=== PATIENT | female | born 1935 | race Two or more races ===

== ENCOUNTER 2021-12-29 16:09 | Inpatient (IN) | payer OTHER ==
[~2021-12-29] VITALS: Ht 152.4 cm; Wt 74.4 kg
[2021-12-29 16:24] VITALS: BP_SYST 124
--- NOTE | 2021-12-29 16:29 | NUR ---
Patient triaged and placed in ER HALLWAY. VSS and patient appears in no acute distress at this time. Accompanied by BLS, awaiting available bed, and MD notified of need for MSE.
--- NOTE | 2021-12-29 16:50 | NUR ---
Placed in room 7 . Placed on pvc monitor, blood pressure machine and pulse oximeter. To gown for exam. Side rails up. Report given to DIOMEDES MIGUEL.
[2021-12-29 17:05] LABS: BASOPHILS # (AUTO) 0.1 K/uL (0.0-0.2); BASOPHILS % (AUTO) 0.8 % (0.0-2.0); EOSINOPHILS # (AUTO) 0.3 K/uL (0.0-0.4); EOSINOPHILS % (AUTO) 3.9 % (0.0-4.0); LYMPHOCYTES # (AUTO) 0.7 K/uL (1.0-5.5); LYMPHOCYTES % (AUTO) 11.1 % (20.5-51.5); MEAN CORPUSCULAR HEMOGLOBIN 31 pg (27-31); MEAN CORPUSCULAR HGB CONC 35 % (32-36); MEAN CORPUSCULAR VOLUME 89 fL (79.0-98.0); MONOCYTES # (AUTO) 0.7 K/uL (0.0-1.0); MONOCYTES % (AUTO) 9.6 % (1.7-9.3); NEUTROPHILS % (AUTO) 74.6 % (40.0-70.0); PLATELET COUNT (AUTO) 438 K/uL (130-430); RED BLOOD CELL COUNT(AUTO) 2.05 MIL/uL (4.2-6.2); RED CELL DISTRIBUTION WIDTH 14.9 % (9.0-15.0); WHITE BLOOD COUNT (AUTO) 6.7 K/uL (4.8-10.8)
[2021-12-29 17:10] LABS: HEMATOCRIT 18.1 % (36-48); HEMOGLOBIN 6.4 g/dL (12.0-16.0)
[2021-12-29 17:37] LABS: ANION GAP 7 (5-15); CALCIUM 9.8 mg/dL (8.4-11.0); CHLORIDE 100 mmol/L (98-107); CREATININE 2.24 mg/dL (0.55-1.30); GLUCOSE 182 mg/dL (70-99); POTASSIUM 4.5 mmol/L (3.5-5.1); UREA NITROGEN, BLOOD 58 mg/dL (8-21)
--- NOTE | 2021-12-29 17:37 | NUR ---
Pt bib ER BLS from [facility], aaox4 GCS 15 CC weakness secondary to reported abnormal labs. Past medical history of HTN, Hyperlipidemia, chronic kidney disease, muscle weakness, heart failure. Pt with Ruiz cath Full code. VSS
[2021-12-29 17:43] LABS: ALANINE AMINOTRANSFERASE 22 U/L (12-78); ALBUMIN 2.3 g/dL (3.4-4.8); AMYLASE 63 U/L (0-100); ASPARTATE AMINOTRANSFERASE 18 U/L (10-37); LIPASE 266 U/L (73-393); TOTAL BILIRUBIN 0.4 mg/dL (0.0-1.0)
[2021-12-29 17:48] LABS: PROTHROMBIN TIME 10.4 SECS (9.5-12.5)
--- NOTE | 2021-12-29 18:05 | NUR ---
Consent for blood discussed with pt and son Kai via telephone. Pt signed for consent to proceed with blood transfusion.
[2021-12-29] MEDS ORDERED: ACET-2634 PO (18:08)
[2021-12-29] MEDS ORDERED: ACET325T PO (18:08)
[2021-12-29] MEDS ORDERED: DOCU-159 PO (18:20)
[2021-12-29] MEDS ORDERED: FURO-149 PO (18:20)
[2021-12-29] MEDS ORDERED: ATOR10TA68 PO (18:20)
[2021-12-29] MEDS ORDERED: LABE100T9 PO (18:20)
[2021-12-29] MEDS ORDERED: MOM PO (18:20)
[2021-12-29] MEDS ORDERED: BISA10SU61 (18:20)
[2021-12-29] MEDS ORDERED: ACETAMINOPHEN 500 MG TABLET PO ONE (18:30)
--- NOTE | 2021-12-29 18:38 | NUR ---
Admit bed requested Patient will be admitted to care of . Admitted to tele unit. Diagnosis severe anemia Inpatient (Yes or No) y Observation (Yes or No) n Orientation concerns or request close to nursing station (Yes or No) n Covid Status neg On vent or bipap no Isolation requirements n Needs a sitter n From Home (Yes or if No enter name of facility) [facility] Requires Dialysis (Yes or No) n Med Rec Completed (Yes of No) y
--- NOTE | 2021-12-29 18:41 | NUR ---
Pt resting comfortably without complaint. Pt informed of admission status and awaiting transfer to floor. Ruiz bag emptied 300 ml .
[2021-12-29] MEDS ORDERED: LORazepam 2 MG/ML VIAL IVP PRN (19:15)
[2021-12-29] MEDS ORDERED: HYDROcodone/ACETAMIN 5-325 MG TAB (NORCO/ VICODIN) PO PRN (19:15)
[2021-12-29] MEDS ORDERED: ACETAMINOPHEN 325 MG TABLET PO PRN ×2 (19:15→19:30)
[2021-12-29] MEDS ORDERED: POTASSIUM CHLORIDE 20 MEQ TAB.PRT.SR PO PRN (19:15)
[2021-12-29] MEDS ORDERED: MAGNESIUM SULFATE 50 ML IV PRN (19:15)
[2021-12-29] MEDS ORDERED: ONDANSETRON HCL 4 MG/2 ML VIAL IVP PRN (19:15)
[2021-12-29] MEDS ORDERED: DOCUSATE SODIUM 100 MG CAPSULE PO PRN (19:15)
[2021-12-29] MEDS ORDERED: MUPIROCIN 2% TOPICAL OINTMENT 22 GM NS PRN (19:15)
[2021-12-29] MEDS ORDERED: ZOLPIDEM TARTRATE 5 MG TABLET PO PRN (19:15)
--- NOTE | 2021-12-29 19:15 | NUR ---
RECD REPORT FROM DIOMEDES MIGUEL FOR CONTINUITY OF CARE. VSS, IV ACCESS PLACED AT LT AC IVF RUNNING
[2021-12-29] MEDS: NACL 0.9% 1,000 ML IV SCH (19:41)
--- NOTE | 2021-12-29 20:00 | NUR ---
C/O PAIN MEDICATED WITH TYLENOL ORAL 500MG, BLOOD TRASFUSION STARTED NO UNTOWARD REACTION NOTED
[2021-12-29 20:07] LABS: TOTAL IRON BIND. CAPACITY 154 ug/dL (250-450)
--- NOTE | 2021-12-29 20:15 | NUR ---
BT IN PROGRESS NO UNTOWARD REACTION NOTED AT THIS TIME.
[2021-12-29 20:37] VITALS: BP_SYST 150
--- NOTE | 2021-12-29 20:37 | NUR ---
NOTES; -Called Annalisa to verify telemetry box with pt's name, and ID bracelet prior put telemetry on this patient.
--- NOTE | 2021-12-29 20:37 | NUR ---
ADMISSION NOTE ADMISSION NOTE Received patient from ER via gurney. Patient admitted with diagnosis of severe anemia. Patient is awake, alert, oriented X 4. Patient oriented to hospital room, call light, toileting, pain management and safety-teach back done. Patient informed that I (Kayli) will be her nurse and that their room number is 103-B. Personal belongings checked and Belongings List documented. Call light within reach. Bed alarmed, side rails x3. Discussed poc,all safety measures, pain mgmt, not to get OOB if needs assistance or if experiencing any acute distress to use call light for assistance, pt verbalized understanding. Pt is a/ox4, knows how to use call light. Pt is arriving with 1 unit of PRBC transfusing of LAC #20, patent, no s/s any infiltration noted and Ruiz cath w/ gravity drains yellow urine outptu. Pt has deep wound of coccyx with scant foul purulent discharge. Also, redness of perineal and redness with skin tear of tonia thighs noted, tonia heels redness with slowly blanchable. will order wound care consult. tonia heels elevated with pillows and turned & repositioned and q 2hrs prn. No family is at bedside. Cont to monitor pt. Addendum: 12/29/21 at 2344 by [employer], RN RN ENDORSED BY MICHELLE PHAN NURSE THAT 2 UNITS OF PRBC ORDERED; 1 UNIT OF PRBC IS INFUSING NOW.
--- NOTE | 2021-12-29 21:01 | NUR ---
Patient will be admitted to care of DR OSBORN. Admitted to MST unit. Will go to room 103-B. Belongings list completed. Complete and up to date summary report printed. SBAR report to be given at bedside with opportunity for questions GIVEN TO PORFIRIO ZELAYA.
[2021-12-29 21:06] VITALS: BP_SYST 150
--- NOTE | 2021-12-29 22:21 | NUR ---
CONSULTATION PAGED/CALLED Reason for Consultation: RENAL INSUFFICIENCY Person Who was Notified: AG Consulting Physician: DR. DAILY Bacteriologist Pharmaceutical Specialty: OIL EXTRACTOR Ordering Physician: DR OSBORN
[2021-12-29 22:45] VITALS: BP_SYST 137
--- NOTE | 2021-12-29 22:45 | NUR ---
ROUNDS; 1 UNIT OF PRBC COMPLETED -Pt is resting in bed comfortably. Pt denies any chest pain,pain,sob,or any acute distress. NO s/s any rxn or complication after 1 unit of 1 unit PRBC completed, VSS 97.1,16,137/65, 79,j1rtd=95% r/a. All safety measures in place. Bed alarmed, side rails x3,call light w/in reach. Cont to monitor pt.
--- NOTE | 2021-12-30 00:20 | NUR ---
ROUNDS; -Pt is resting in bed comfortably. No s/s any chest pain,pain,sob,or any acute distress noted. All safety measures in place. Bed alarmed, side rails x3,call light w/in reach. Cont to monitor pt
--- NOTE | 2021-12-30 03:15 | NUR ---
NOTES; COLLECTED MRSA NARES AND COLLECTED URINE FROM SHIELDS CATH FOR U/A USING STERILE TECHNIQUE AND SENT TO LAB
[2021-12-30 03:25] VITALS: BP_SYST 160
--- NOTE | 2021-12-30 03:25 | NUR ---
BT INITIATION: Consent signed by patient agreeing to administration of blood. Blood has been type and crossmatched. Blood sent from blood bank. Information on unit of blood checked against patient wristband at bedside by two nurses. All information matches. Patient or responsible libertarian informed of potential complications associated with blood transfusion. Informed of possible transfusion reaction symptoms. Aware of need to notify nurse at once of itching, shortness of breath, flushing, feeling of impending doom, or other symptoms not previously present. Vital signs taken within 5 minutes prior to initiation of transfusion. Vital signs 96.8,16,77,160/72,l9yop=45% r/a. RN will remain with patient for first 15 minutes of transfusion at which time vital signs will be re-assessed.
[2021-12-30 03:40] VITALS: BP_SYST 158
--- NOTE | 2021-12-30 03:40 | NUR ---
NOTES; AFTER 15 MINS OF PRBC UNIT TRANSFUSED -Pt is resting in bed comfortably. Pt denies any chest pain, pain,sob,or any acute distress. VSS 97.8,158/70,77,16,a0trd=56% r/a. No s/s any rxn or an complication noted. Cont to monitor pt.
[2021-12-30 03:49] LABS: BILIRUBIN,URINE NEGATIVE (NEGATIVE); BLOOD, URINE NEGATIVE (NEGATIVE); COLOR,URINE YELLOW (YELLOW); GLUCOSE,URINE NEGATIVE (NEGATIVE); KETONES,URINE NEGATIVE (NEGATIVE); LEUKOCYTE ESTERASE ,URINE 1+ (NEGATIVE); NITRITE, URINE POSITIVE (NEGATIVE); PH,URINE 5.5 (5.0-8.0); PROTEIN URINE NEGATIVE (NEGATIVE); UROBILINOGEN,URINE 0.2 (0.2-1.0)
[2021-12-30 03:53] LABS: CLARITY/URINE HAZY (CLEAR)
[2021-12-30 03:58] LABS: RBC,URINE 0-3 /HPF (0-3)
[2021-12-30 04:01] LABS: BACTERIA,URINE MODERATE /HPF (None Seen)
[2021-12-30 04:02] LABS: MUCUS,URINE 1+ /LPF (None Seen)
--- NOTE | 2021-12-30 05:40 | NUR ---
NOTES; NEW IV SITE -INSERTED NEW IV SITE OF RAC #20, PATENT, GOOD BLOOD RETURNS, NO S/S ANY INFILTRATION NOTED. -CONTINUING TO INFUSE BLOOD TRANSFUSION. PT DENIES ANY CHEST PAIN,PAIN,SOB,OR ANY ACUTE DISTRESS. CONT TO MONITOR PT.
--- NOTE | 2021-12-30 06:55 | NUR ---
ROUNDS; -Pt is resting in bed comfortably. Blood transfusion is almost completed, no s/s any rxn or complication noted. Pt denies any chest pain,pain,sob,or any acute distress noted. IV site of RAC patent,no s/s any infiltration noted. Ruiz cath w/ gravity drains yellow urine output. All safety measures in place. Bed alarmed, side rails x3,call light w/in reach. Will endorse to next nurse to cont care.
--- NOTE | 2021-12-30 07:30 | NUR ---
OPENING NOTE Patient resting in bed. Blood Transfusion completed at this time. Checked vital signs for post transfusion, all within normal limits. Patient A/O x 4 Qatari speaking. On bedrest with Ruiz placed, patent and draining yellow urine to gravity. No pain, no sob, no distress noted at this time. All needs met, safety precautions in place, bed is locked in lowest position, call light within reach. Will continue to monitor.
[2021-12-30 07:34] VITALS: BP_SYST 124
[2021-12-30] MEDS: ATORVASTATIN 10 MG TABLET PO SCH (09:03)
[2021-12-30] MEDS: LABETALOL HCL 100 MG TABLET PO SCH (09:04)
[2021-12-30] MEDS: NACL 0.9% 1,000 ML IV SCH (09:07)
[2021-12-30 09:19] LABS: BASOPHILS # (AUTO) 0.1 K/uL (0.0-0.2); BASOPHILS % (AUTO) 1.1 % (0.0-2.0); EOSINOPHILS # (AUTO) 0.1 K/uL (0.0-0.4); EOSINOPHILS % (AUTO) 1.5 % (0.0-4.0); HEMOGLOBIN 9.1 g/dL (12.0-16.0); LYMPHOCYTES # (AUTO) 0.7 K/uL (1.0-5.5); LYMPHOCYTES % (AUTO) 7.3 % (20.5-51.5); MEAN CORPUSCULAR HEMOGLOBIN 28 pg (27-31); MEAN CORPUSCULAR HGB CONC 34 % (32-36); MEAN CORPUSCULAR VOLUME 84 fL (79.0-98.0); MONOCYTES # (AUTO) 0.6 K/uL (0.0-1.0); MONOCYTES % (AUTO) 6.5 % (1.7-9.3); NEUTROPHILS # (AUTO) 7.9 K/uL (1.8-7.7); NEUTROPHILS % (AUTO) 83.6 % (40.0-70.0); PLATELET COUNT (AUTO) 400 K/uL (130-430); RED CELL DISTRIBUTION WIDTH 19.6 % (9.0-15.0); WHITE BLOOD COUNT (AUTO) 9.4 K/uL (4.8-10.8)
[2021-12-30 09:46] LABS: ANION GAP 9 (5-15); CALCIUM 9.9 mg/dL (8.4-11.0); CHLORIDE 112 mmol/L (98-107); GLUCOSE 166 mg/dL (70-99); POTASSIUM 4.2 mmol/L (3.5-5.1); UREA NITROGEN, BLOOD 50 mg/dL (8-21)
[2021-12-30] MEDS ORDERED: FERROUS GLUCONATE 324 MG TABLET PO ONE (10:00)
[2021-12-30] MEDS: cefTRIAXone 1 GM IVPB PREMIX 50 ML IV SCH (11:39)
--- NOTE | 2021-12-30 11:57 | NUR ---
Patient Rounds Patient resting in bed. No pain, no sob, no distress noted at this time. Ruiz patent and draining yellow urine to gravity. All needs met, safety precautions in place, bed is locked in lowest position, call light within reach. Will continue to monitor.
[2021-12-30 12:04] VITALS: BP_SYST 151
[2021-12-30] MEDS ORDERED: CALC0.258 PO (14:08)
[2021-12-30] MEDS ORDERED: MULT-1089 PO (14:10)
[2021-12-30] MEDS ORDERED: SENN8.6T19 PO (14:10)
[2021-12-30] MEDS ORDERED: PRO40 PO (14:10)
--- NOTE | 2021-12-30 15:21 | NUR ---
IV access Patient's IV to RAC became dislodged. Re inserted IV to Right hand 22 g. Patent and on infusion pump. Patient tolerated procedure well.
[2021-12-30 16:06] VITALS: BP_SYST 142
[2021-12-30] MEDS: FERROUS GLUCONATE 324 MG TABLET PO SCH (17:53)
--- NOTE | 2021-12-30 18:46 | NUR ---
CLOSING NOTE Patient resting in bed. Patient A/O x 4 Mexican speaking. On bedrest with Ruiz placed, patent and draining yellow urine to gravity. No pain, no sob, no distress noted at this time. Stool for Occult blood has not been collected yet but will endorse to night shift supervisor nurse, due to patient not having a bowel movement yet. All needs met, safety precautions in place, bed is locked in lowest position, call light within reach. Will endorse to nightshift nurse.
--- NOTE | 2021-12-30 19:00 | NUR ---
received pt from day nurse report giving at bedside. pt alert, awake and stable at this time. no c/o pain or distress noted at this time. skin warm to touch and clean and dry. pt has wound to sacrum dressing clean and intact and scab to left hip and left ankle with clean dressing. pt able to make needs known. 20g to daina patent and intact. educate pt how to use call light and place bed to lowest position.
--- NOTE | 2021-12-30 19:00 | NUR ---
received pt from day nurse report giving at bedside pt in bed alert, awake and stable. no c/o pain or distress noted at this time. vitals taken and within normal limits resp even while on ra. skin warm to touch and clean and dry. pt has wound to sacrum dressing intact. 22g to right hand patent and intact with ivf running pt tolerated well. educate pt how to use call light and place bed to lowest position.
[2021-12-30 21:31] VITALS: BP_SYST 140
[2021-12-31 01:12] VITALS: BP_SYST 144
--- NOTE | 2021-12-31 05:44 | NUR ---
pt refused am dressing change. current dressing is not dry and intact. i explain to the pt how important it is to change her dressing. pt stated no she does not wont it change and that her other facility wound change it. to inform pt that she will be d/c later in the day and we can not leave the dirty dressing in place. pt stated no change.
[2021-12-31 06:36] LABS: ANION GAP 9 (5-15); CALCIUM 9.7 mg/dL (8.4-11.0); CHLORIDE 105 mmol/L (98-107); CREATININE 1.54 mg/dL (0.55-1.30); GLUCOSE 115 mg/dL (70-99); UREA NITROGEN, BLOOD 39 mg/dL (8-21)
[2021-12-31 07:05] LABS: BASOPHILS # (AUTO) 0.1 K/uL (0.0-0.2); BASOPHILS % (AUTO) 0.9 % (0.0-2.0); EOSINOPHILS # (AUTO) 0.2 K/uL (0.0-0.4); EOSINOPHILS % (AUTO) 2.3 % (0.0-4.0); HEMATOCRIT 25.8 % (36-48); HEMOGLOBIN 8.7 g/dL (12.0-16.0); LYMPHOCYTES # (AUTO) 0.8 K/uL (1.0-5.5); LYMPHOCYTES % (AUTO) 11.9 % (20.5-51.5); MEAN CORPUSCULAR HEMOGLOBIN 30 pg (27-31); MEAN CORPUSCULAR HGB CONC 34 % (32-36); MEAN CORPUSCULAR VOLUME 87 fL (79.0-98.0); MONOCYTES # (AUTO) 0.7 K/uL (0.0-1.0); MONOCYTES % (AUTO) 9.5 % (1.7-9.3); NEUTROPHILS # (AUTO) 5.2 K/uL (1.8-7.7); NEUTROPHILS % (AUTO) 75.4 % (40.0-70.0); PLATELET COUNT (AUTO) 395 K/uL (130-430); RED BLOOD CELL COUNT(AUTO) 2.95 MIL/uL (4.2-6.2); RED CELL DISTRIBUTION WIDTH 19.5 % (9.0-15.0); WHITE BLOOD COUNT (AUTO) 6.9 K/uL (4.8-10.8)
[2021-12-31 07:30] VITALS: BP_SYST 175
--- NOTE | 2021-12-31 07:30 | NUR ---
OPENING NOTE Patient resting in bed. Patient A/O x 4 [place] Islander speaking. On bedrest with Ruiz placed, patent and draining yellow urine to gravity. No pain, no sob, no distress noted at this time. Stool for Occult blood has not been collected patient stated she has gas but no urge just yet. All needs met, safety precautions in place, bed is locked in lowest position, call light within reach. Will continue to monitor.
[2021-12-31 08:06] LABS: FOLATE (FOLIC ACID) 7.5 ng/mL (>3.0)
[2021-12-31] MEDS: FERROUS GLUCONATE 324 MG TABLET PO SCH ×2 (08:17→17:10)
[2021-12-31] MEDS: ATORVASTATIN 10 MG TABLET PO SCH (08:17)
[2021-12-31] MEDS: LABETALOL HCL 100 MG TABLET PO SCH (08:18)
[2021-12-31] MEDS ORDERED: MAGNESIUM SULFATE 4 GM in D5W 250 ML IV ONE (08:30)
[2021-12-31] MEDS ORDERED: BISACODYL 5 MG TABLET.DR (DULCOLAX) PO ONE (08:30)
[2021-12-31 11:26] VITALS: BP_SYST 154
--- NOTE | 2021-12-31 12:00 | NUR ---
PATIENT ROUNDS Patient resting in bed. Ruiz placed, patent and draining yellow urine to gravity. No pain, no sob, no distress noted at this time. All needs met, safety precautions in place, bed is locked in lowest position, call light within reach. Will continue to monitor.
--- NOTE | 2021-12-31 13:59 | NUR ---
Discharge Planning: DCP faxed pt referral to [facility] [phone], patient to DC Tuesday01-01-2022. DCP to follow up
[2021-12-31] MEDS: NACL 0.9% 1,000 ML IV SCH (14:09)
[2021-12-31] MEDS: cefTRIAXone 1 GM IVPB PREMIX 50 ML IV SCH (14:30)
[2021-12-31 15:24] VITALS: BP_SYST 139
--- NOTE | 2021-12-31 16:00 | NUR ---
PATIENT ROUNDS Patient resting in bed. Patient had a two smeared bowel movements not enough for occult blood. Patient stated she will mostly likely be able to go after dinner since she has no urge to go at this moment, will continue to monitor. Ruiz placed, patent and draining yellow urine to gravity. No pain, no sob, no distress noted at this time. All needs met, safety precautions in place, bed is locked in lowest position, call light within reach. Will continue to monitor.
--- NOTE | 2021-12-31 16:28 | NUR ---
STOOL OCCULT BLOOD Stool collect for Occult Blood and sent to lab for processing.
--- NOTE | 2021-12-31 18:51 | NUR ---
CLOSING NOTE Patient resting in bed. Patient A/O x 4 Faroese speaking. On bedrest with Ruiz placed, patent and draining yellow urine to gravity. No pain, no sob, no distress noted at this time. Stool for Occult blood has been collected. All needs met, safety precautions in place, bed is locked in lowest position, call light within reach. Will endorse to nightshift nurse.
[2022-01-01 01:01] VITALS: BP_SYST 155
[2022-01-01] MEDS: NACL 0.9% 1,000 ML IV SCH (05:25)
[2022-01-01 07:19] LABS: HEMOGLOBIN A1C 7.7 % (4.8-5.6)
[2022-01-01 07:46] LABS: BASOPHILS # (AUTO) 0.1 K/uL (0.0-0.2); BASOPHILS % (AUTO) 0.7 % (0.0-2.0); EOSINOPHILS # (AUTO) 0.1 K/uL (0.0-0.4); EOSINOPHILS % (AUTO) 0.6 % (0.0-4.0); HEMATOCRIT 25.7 % (36-48); HEMOGLOBIN 8.7 g/dL (12.0-16.0); LYMPHOCYTES # (AUTO) 0.8 K/uL (1.0-5.5); LYMPHOCYTES % (AUTO) 9.2 % (20.5-51.5); MEAN CORPUSCULAR HEMOGLOBIN 30 pg (27-31); MEAN CORPUSCULAR HGB CONC 34 % (32-36); MEAN CORPUSCULAR VOLUME 87 fL (79.0-98.0); MONOCYTES # (AUTO) 0.8 K/uL (0.0-1.0); MONOCYTES % (AUTO) 8.7 % (1.7-9.3); NEUTROPHILS # (AUTO) 7.2 K/uL (1.8-7.7); NEUTROPHILS % (AUTO) 80.8 % (40.0-70.0); PLATELET COUNT (AUTO) 396 K/uL (130-430); RED BLOOD CELL COUNT(AUTO) 2.96 MIL/uL (4.2-6.2); RED CELL DISTRIBUTION WIDTH 19.7 % (9.0-15.0); WHITE BLOOD COUNT (AUTO) 8.9 K/uL (4.8-10.8)
--- NOTE | 2022-01-01 07:55 | NUR ---
PHYSICAL THERAPY CO-SIGN The Physical Therapy Progress Notes documented by Java Developer Consultant have been reviewed. Reviewed/Co-Signed by: Burak Hermosillo Documentation Done by: LASHELL GOLD PTA Addendum: 01/01/22 at 0755 by Burak Hermosillo PT Amended: Links added.
[2022-01-01 08:00] VITALS: BP_SYST 147
[2022-01-01 08:38] LABS: ANION GAP 7 (5-15); CALCIUM 9.6 mg/dL (8.4-11.0); CHLORIDE 106 mmol/L (98-107); CREATININE 1.38 mg/dL (0.55-1.30); GLUCOSE 128 mg/dL (70-99); POTASSIUM 3.8 mmol/L (3.5-5.1); UREA NITROGEN, BLOOD 31 mg/dL (8-21)
[2022-01-01] MEDS: ATORVASTATIN 10 MG TABLET PO SCH (09:55)
[2022-01-01] MEDS: LABETALOL HCL 100 MG TABLET PO SCH (09:55)
--- NOTE | 2022-01-01 10:09 | NUR ---
Discharge Planning: DCP arranged transport with [facility] [phone] BLS 3:30pm to [facility] [phone] Rm [id number]. DCP made CM aware and charge nurse. Patient packet taken to nurse station. Disposition 03
[2022-01-01 11:15] VITALS: BP_SYST 115
[2022-01-01] MEDS: cefTRIAXone 1 GM IVPB PREMIX 50 ML IV SCH (12:09)
[2022-01-01] MEDS: FERROUS GLUCONATE 324 MG TABLET PO SCH (12:09)
[2022-01-01] MEDS ORDERED: FERR324T22 PO (13:08)
--- NOTE | 2022-01-01 14:30 | NUR ---
discharge pictures of present wounds taken and labeled. telemetry unit removed earlier at 12 noon
--- NOTE | 2022-01-01 14:30 | NUR ---
WOUND EVALUATION: Wound Consult received from Dr. Paz. Thank you, Dr. Paz, for the consult. Patient received in a [place] Bed with an IsoFlex MIRNA mattress, awake, alert, and oriented x 3-4. Patient is unable to turn independently. Marciano Score is a 15. Past Medical History: Hypertension, Dyslipidemia. Patient found to have severe Anemia upon admission with routine labs. Recent Labs: WBC 8.9, RBC 2.96, hemoglobin 8.7, hematocrit 25.7, BUN 31, creatinine 1.38, glucose 128, albumin 2.3. Microbiology: MRSA screen results negative. Stool OB results negative. Urine culture results in progress. Intrinsic factors that delay wound healing: Severe Anemia. Extrinsic factors that delay wound healing: Decreased mobility. Wound Assessment: 1. Sacral area: Stage IV pressure ulcer, present on admission. Wound bed has 40% pink tissue, 40% yellow slough, 15% black slough, 5% red tissue. Moderate odor, scant red drainage. Bone is palpable. Undermining present from 72 o'clock: 1.3 cm at 7 o'clock; 2.0 cm at 9 o'clock; 2.1 cm at 12 o'clock; 2.8 cm at 2 o'clock. Wound measures 4.0 cm x 2.5 cm x 2.0 cm. Recommend: Cleanse wound with normal saline. Apply moisture barrier cream to periwound. Apply Venelex ointment to wound bed. Pack wound with 1/2 inch iodoform packing strip. Cover wound with sacral foam dressing. Perform wound care daily, and as needed for dressing soiling or dislodgment. 2. Left Posterior Heel: Unstageable pressure ulcer, present on admission. Wound bed has 100% yellow eschar, that is peeling off. No odor, no drainage. Periwound intact. Wound measures 1.5 cm x 3.7 cm. Recommend: [place] site with Betadine. Allow Betadine to air dry. Cover site with foam dressing. Offload site at all times. Change dressing and assess site daily. Also recommend: Encourage and assist patient with repositioning side to side only every 2 hours with pillow support and off-load pressure areas with pillows for pressure re-distribution. Offload, elevate and float bilateral heels with one pillow lengthwise extremity at all times. Perform skin care and monitor skin integrity Q shift. Use moisture barrier cream on buttocks and other moisture susceptible areas QID and as needed for soiling. Maintain patient on a low air-loss mattress. Addendum: 01/01/22 at 1714 by Jose Ortiz RN Addendum: 3. Perianal area: Scar tissue and dark discolored tissue surrounding rectal area, and admission. 4. Perineal/Vaginal area: Scar tissue present on multiple areas, present on admission. Recommend: Cleanse involved areas of mild soap and water. Pat dry. Apply moisture barrier cream to involved areas. Perform site care 4 times daily and as needed for soiling.
[2022-01-01 16:00] VITALS: BP_SYST 140
--- NOTE | 2022-01-01 16:00 | NUR ---
heplock removed. dyer catheter left in place. report called to [facility] and report given to David. discharge instructions given to pt. and signed. pt verbalized understanding. taken per ambulance BCLS.
[2022-01-02] MEDS ORDERED: BALSAM PERU/CASTOR OIL 56.7 GM OINT...G. TP SCH (09:00)
== END 2022-01-01 16:15 | DRG 811 ==
LOC: SED 16:09 → STU 18:43 → SMU 01-01 11:34
PROVIDERS: ADMIT General Practice; ATTEND General Practice
PROC: 30233N1 Transfusion of Nonautologous Red Blood Cells into Peripheral Vein, Percutaneous Approach (ICD-10-PCS; principal; 2021-12-29)
PROC: 0T9B70Z Drainage of Bladder with Drainage Device, Via Natural or Artificial Opening (ICD-10-PCS; 2021-12-29)
DX: D50.9 Iron deficiency anemia, unspecified (principal); G93.41 Metabolic encephalopathy; N17.0 Acute kidney failure with tubular necrosis; N39.0 Urinary tract infection, site not specified; E44.1 Mild protein-calorie malnutrition; Z20.822 Contact with and (suspected) exposure to COVID-19; I48.91 Unspecified atrial fibrillation; E83.42 Hypomagnesemia; I10 Essential (primary) hypertension; E78.5 Hyperlipidemia, unspecified; Z86.73 Personal history of transient ischemic attack (TIA), and cerebral infarction without residual deficits; Z90.710 Acquired absence of both cervix and uterus; Z79.899 Other long term (current) drug therapy; Z68.32 Body mass index [BMI] 32.0-32.9, adult; Z91.012 Allergy to eggs; Z91.011 Allergy to milk products; Z79.01 Long term (current) use of anticoagulants
CPT/HCPCS: 36415; 71045; 76376; 80048; 80053; 81000; 82150; 82272; 82607; 82728; 82746; 83036; 83540; 83550; 83605; 83690; 83735; 85025; 85610-TC; 85730-TC; 86886; 86900; 86901; 86920; 87081; 87086; 93005; 96360; 97110-GP; 97530-GP; 99285; G0378; J0696; J3475; J7030; J7050; J7060; P9021